=== PATIENT | female | born 1975 | race Caucasian/White ===

== ENCOUNTER 2019-03-07 02:35 | Emergency (ER) | payer OTHER ==
[2019-03-07] MEDS ORDERED: ASPIRIN 81 MG CHEWABLE TABLET PO ONE (02:37)
[2019-03-07 02:46] LABS: ABSOLUTE NEUTROPHIL COUNT 4.95; BASO % 0.5 % (0-6); GRAN % 44.8 % (47-80); HEMATOCRIT 40.4 % (35.0-47.0); HEMOGLOBIN 12.5 gm/dl (11.6-16.0); LYMPH % 41.5 % (16-45); MEAN CELL VOLUME 91.4 fl (81-97); MEAN CORPUSCULAR HEMOGLOBIN 28.3 pg (27-33); MEAN CORPUSCULAR HGB CONC 30.9 g/dl (32-36); MEAN PLATELET VOLUME 9.1 fl (7.4-10.4); MONO % 9.2 % (0-9); PLATELET COUNT 408 K/uL (130-400); RED BLOOD COUNT 4.42 M/uL (3.80-5.40); RED CELL DISTRIBUTION WIDTH 14.9 % (11.5-14.5)
--- NOTE | 2019-03-07 02:46 | Emergency Department Record ---
History of Present Illness - General Chief Complaint: Chest Pain Stated Complaint: CHEST PAIN Time Seen by Provider: 03/07/19 02:36 Source: Patient Mode of Arrival: Ambulatory Limitations: No limitations - History of Present Illness Initial Comments: 43 yo female presents to ED for evaluation of epigastric pain symptoms that began approximately 90 minutes ago. Patient describes her pain symptoms as "sharp", radiates to the back. Patient reports vomiting x 1 last evening. Patient denies fevers, chills, or productive cough symptoms. Patient denies calf pain or swelling, denies history of DVT/PE, and denies OCP use. Patient denies cough, fever, or recent illness. Patient denies previous heart or lung problems at her baseline. Patient denies previous abdominal surgery other than peritoneal shunt. MD Complaint: Other (Epigastric abdominal pain) Onset/Timin -: Minutes(s) Pain Location: Substernal Pain Radiation: None Severity: Moderate Quality: Aching Consistency: Constant Improves With: Nothing Worsens With: Nothing Treatments Prior to Arrival: None - Related Data On Oral Contraceptives: No Home Medications Medication Instructions Recorded Confirmed Last Taken Ibuprofen 400 mg PO BID PRN 03/07/19 03/07/19 03/07/19 Allergies Allergy/AdvReac Type Severity Reaction Status Date / Time adhesive tape Allergy RASH Verified 03/07/19 02:44 Review of Systems Constitutional: Denies: Chills, Fever, Malaise, Night sweats Eyes: Denies: Eye discharge, Eye pain ENT: Denies: Congestion, Ear pain, Epistaxis Respiratory: Denies: Cough, Dyspnea Cardiovascular: Reports: Chest pain. Denies: Dyspnea on exertion Endocrine: Denies: Fatigue, Heat or cold intolerance Gastrointestinal: Denies: Abdominal pain, Nausea, Vomiting Genitourinary: Denies: Incontinence, Retention Musculoskeletal: Denies: Arthralgia, Back pain Skin: Denies: Bruising, Change in color Neurological: Denies: Abnormal gait, Confusion, Headache, Seizure Psychiatric: Denies: Anxiety Hematological/Lymphatic: Denies: Anemia, Blood Clots Past Medical History - SOCIAL HISTORY Smoking Status: Never smoker - RESPIRATORY Hx Respiratory Disorders: No - CARDIOVASCULAR Hx Cardio Disorders: No - NEURO Hx Neuro Disorders: Yes Comment:: aquaductal stenosis. hydrocephalus. - GI Hx GI Disorders: No - Hx Genitourinary Disorders: No - ENDOCRINE Hx Endocrine Disorders: No - MUSCULOSKELETAL Hx Musculoskeletal Disorders: No - PSYCH Hx Psych Problems: No - HEMATOLOGY/ONCOLOGY Hx Hematology/Oncology Disorders: No Physical Exam - General General Appearance: Alert, Oriented x3, Cooperative, No acute distress Limitations: No limitations - Head Head exam: Atraumatic, Normocephalic, Normal inspection Head exam detail: negative: Abrasion, Contusion, Killian's sign, General tenderness, Hematoma, Laceration - Eye Eye exam: Normal appearance. negative: Conjunctival injection, Periorbital swelling, Periorbital tenderness, Scleral icterus - ENT Ear exam: negative: Auricular hematoma, Auricular trauma Nasal Exam: negative: Active bleeding, Discharge, Dried blood, Foreign body Mouth exam: negative: Drooling, Laceration, Muffled voice, Tongue elevation - Neck Neck exam: Normal inspection. negative: Meningismus, Tenderness - Respiratory Respiratory exam: Normal lung sounds bilaterally. negative: Rales, Respiratory distress, Rhonchi, Stridor - Cardiovascular Cardiovascular Exam: Regular rate, Normal rhythm, Normal heart sounds - GI/Abdominal GI/Abdominal exam: Soft. negative: Rebound, Rigid, Tenderness - Rectal Rectal exam: Deferred - exam: Deferred - Extremities Extremities exam: Normal inspection. negative: Pedal edema, Tenderness - Back Back exam: Denies: CVA tenderness (R), CVA tenderness (L) - Neurological Neurological exam: Alert, Normal gait, Oriented X3 - Psychiatric Psychiatric exam: Normal affect, Normal mood - Skin Skin exam: Normal color. negative: Abrasion Type of lesion: negative: abrasion Course - Reevaluation(s) Reevaluation #1: 03/07/19 02:42 EKG: NSR 90 Normal axis, normal intervals No acute ST-T wave changes. Reevaluation #2: 03/07/19 03:10 Laboratory studies were reviewed and appear grossly unremarkable for an acute process. Reevaluation #3: 03/07/19 04:02 CT Abdomen and Pelvis: Cholelithiasis Normal appendix Patient was updated on all results, resting comfortably on re-examination (pain 1/10). Will perform repeat troponin at 5:45 to exclude cardiac injury. The patient was deemed to be low-risk for cardiac disease based on the patients history and evaluation in the ED, HEART Score was applied and found to be 1. As a result, repeat Troponin in 3-hours appears appropriate and if negative for myocardial injury, the patient may be discharged home with appropriate outpatient follow-up for further evaluation. Reevaluation #4: 03/07/19 06:15 Repeat troponin appears negative for myocardial injury. Patient and her SO were updated on all results, will arrange outpatient follow- up for possible biliary colic with Dr. Albarado next Monday. Patient appears stable for discharge at this time. Medical Decision Making - Lab Data Result diagrams: 03/07/19 02:40 03/07/19 02:40 Disposition Disposition: Discharge Clinical Impression: Chest pain Qualifiers: Chest pain type: unspecified Qualified Code(s): R07.9 - Chest pain, unspecified Cholelithiasis Qualifiers: Cholelithiasis location: gallbladder Cholecystitis presence: without cholecystitis Biliary obstruction: without biliary obstruction Qualified Code(s): K80.20 - Calculus of gallbladder without cholecystitis without obstruction Disposition: Home, Self-Care Condition: (2) Stable Instructions: Chest Pain (ED) Additional Instructions: Return to ED if your symptoms worsen or if you have any concerns. Ibuprofen as directed. Follow-up with your family doctor in 3-5 days as directed. Follow-up with Dr. Albarado Monday regarding possible biliary colic symptoms. Referrals: Manny Albarado [DOCTOR OF OSTEOPATH] - [facility] [Provider Group] Forms: Patient Portal Access Time of Disposition: 06:16 Quality - Quality Measures Quality Measures: N/A - Blood Pressure Screening Does Patient Have Any of the Following: No Blood Pressure Classification: Hypertensive Reading Systolic Measurement: 134 Diastolic Measurement: 94 Screening for High Blood Pressure: < First Hypertensive BP, F/U Documented > [ [id number]] First Hypertensive Follow-up Interventions: Referral to alternative/primary care provider.
[2019-03-07] MEDS ORDERED: KETOROLAC 30 MG/ML VIAL IVP ONE (02:49)
[2019-03-07 02:59] LABS: BLOOD UREA NITROGEN 16 mg/dL (6-20); CREATININE 0.8 mg/dL (0.5-0.9); EST GLOMERULAR FILTRATION RATE > 60 mL/min
[2019-03-07 03:00] LABS: TOTAL PROTEIN 6.9 g/dL (6.6-8.7)
[2019-03-07] MEDS ORDERED: 0.9 % SODIUM CHLORIDE 1000ML 1,000 ML IV SCH (03:00)
[2019-03-07 03:02] LABS: GLUCOSE,RANDOM 110 mg/dL (74-109)
[2019-03-07 03:05] LABS: ALB/GLOB RATIO 1.5 (1.1-1.8); ALBUMIN 4.1 g/dL (4.0-5.0); ALKALINE PHOSPHATASE 74 U/L (35-104); ALT/SGPT < 5 U/L (<33); AST/SGOT 10 U/L (10.0-35.0)
--- NOTE | 2019-03-07 03:49 | CT SCAN REPORT ---
EXAMINATION: CT Abdomen and Pelvis with IV Contrast EXAM DATE: 03/07/2019 3:31 AM TECHNIQUE: CT imaging of the abdomen and pelvis was performed with intravenous contrast. Coronal and sagittal images were reconstructed. IV Contrast: The amount and type of contrast are recorded in the medical record. INDICATION: epigastric/back pain COMPARISON: None ENCOUNTER: Not applicable CT ABDOMEN AND PELVIS FINDINGS: Lung Bases: Included extent of the lung bases are clear. Hepatobiliary: The liver has a normal size with a smooth surface. The hepatic and portal veins appear patent. Cholelithiasis Pancreas: The pancreas is normal. Spleen: The spleen is not enlarged. Adrenals: The adrenal glands are normal. Kidneys, Ureters, & Bladder: Both kidneys have a normal size and there is no hydronephrosis. Both ur eters have a normal caliber and the urinary bladder is unremarkable. Gastrointestinal: The stomach and small bowel are normal with no obstruction or inflammation. Appendi x is visualized and appears normal The large bowel is normal. Reproductive Organs: Unremarkable Lymphatic System: There is no adenopathy within the abdomen or pelvis. Vasculature: Normal caliber abdominal aorta. Peritoneum: No free fluid, free air, or inflammation. There is a ventricular peritoneal shunt tube in the abdomen. No evidence of malfunction Abdominal Wall & Musculoskeletal: No suspicious bone lesions. IMPRESSION: Cholelithiasis. No ductal dilatation. The appendix is visualized and appears normal Dictated by: Laya Roth DO on 03/07/2019 3:45 AM. .
== END 2019-03-07 06:28 | disposition home or self-care (01) ==
LOC: ER 02:35
DX: K80.20 Calculus of gallbladder without cholecystitis without obstruction (principal); R07.2 Precordial pain; R10.13 Epigastric pain
CPT/HCPCS: 99284 ×2; 96374; 83690; 85025; 80053; 84484; 74177; 93005; 93010; Q9967; J1885; J7030